=== PATIENT | male | born 1935 | race Caucasian/White ===

== ENCOUNTER 2017-03-18 08:27 | Inpatient (IN) | payer MEDICARE ==
[~2017-03-18] VITALS: Ht 172.7 cm; Wt 75.5 kg
[2017-03-18] MEDS ORDERED: ONDANSETRON 2MG/ML, 2ML IVPush ONE (09:00)
[2017-03-18] MEDS ORDERED: SODIUM CHLORIDE FLUSH 10ML SYR IVF ONE (09:00)
[2017-03-18] MEDS ORDERED: ONDANSETRON 2MG/ML, 2ML ONE (09:26)
[2017-03-18 09:49] LABS: HEMATOCRIT 28.9 % (39.2-51.8); HEMOGLOBIN 9.5 g/dL (13.7-18.0); WHITE BLOOD COUNT 13.5 x10^3/uL (3.4-10)
[2017-03-18 09:57] LABS: ASPARTATE AMINO TRANSFERASE 277 U/L (15-37); BLOOD UREA NITROGEN 21 mg/dL (7-18)
[2017-03-18] MEDS ORDERED: CEFTRIAXONE PMX 1GM/50ML 50 ML IV ONE (11:00)
[2017-03-18] MEDS ORDERED: SODIUM CHLORIDE 0.9% 1,000ML IVBOLUS ONE (11:00)
[2017-03-18] MEDS ORDERED: AZITHROMYCIN 500 MG in SODIUM CHLORIDE 0.9% 250 ML IV ONE (11:00)
[2017-03-18] MEDS ORDERED: SODIUM CHLORIDE 0.9%, 500ML IVBOLUS ONE (11:00)
[2017-03-18] MEDS ORDERED: CEFTRIAXONE PMX 1GM/50ML 50 ML ONE (11:05)
[2017-03-18] MEDS ORDERED: DILT180C PO (11:51)
[2017-03-18] MEDS ORDERED: SENN8.6T78 PO (11:51)
[2017-03-18] MEDS ORDERED: TRAM50TA2 PO (11:51)
[2017-03-18] MEDS ORDERED: TAMS0.4C2 PO (11:51)
[2017-03-18 12:10] VITALS: BP 153/81
[2017-03-18 13:33] VITALS: BP 153/81
[2017-03-18] MEDS ORDERED: VANCOMYCIN PER PHARMACY MC PRN (16:00)
[2017-03-18] MEDS ORDERED: ONDANSETRON 2MG/ML, 2ML IVPush PRN (16:00)
[2017-03-18] MEDS ORDERED: PHARMACOKINETIC MONITORING MC PRN (16:30)
[2017-03-18] MEDS ORDERED: PHARMACOKINETIC CONSULTATION MC ONE (16:30)
[2017-03-18] MEDS: MEROPENEM 1 GM in SODIUM CHLORIDE 0.9% 50 ML IV SCH (16:35)
[2017-03-18] MEDS: SODIUM CHLORIDE 0.9% 1,000 ML IV SCH ×2 (16:35→22:20)
[2017-03-18] MEDS: ENOXAPARIN 40 MG/0.4 ML SQ SCH (16:36)
[2017-03-18] MEDS: VANCOMYCIN 1,400 MG in SODIUM CHLORIDE 0.9% 250 ML IV SCH (17:58)
[2017-03-18 18:48] VITALS: BP 125/76
[2017-03-18] MEDS ORDERED: DILTIAZEM 90 MG CAP.ER.12H PO SCH (21:00)
[2017-03-18] MEDS: DILTIAZEM 60 MG CAP.ER.12H PO SCH (21:17)
[2017-03-18] MEDS ORDERED: OMNIPAQUE 350 MG/ML, 100ML BOTTLE ONE (21:44)
[2017-03-19 00:47] VITALS: BP 121/70
[2017-03-19] MEDS: MEROPENEM 1 GM in SODIUM CHLORIDE 0.9% 50 ML IV SCH ×2 (00:52→07:27)
[2017-03-19 04:40] LABS: HEMATOCRIT 25.2 % (39.2-51.8); HEMOGLOBIN 8.1 g/dL (13.7-18.0); WHITE BLOOD COUNT 12.9 x10^3/uL (3.4-10)
[2017-03-19 04:49] LABS: BLOOD UREA NITROGEN 23 mg/dL (7-18)
[2017-03-19] MEDS: morphine SULFATE 10 MG/ML, 1ML IVPush PRN ×3 (05:13→20:54)
[2017-03-19] MEDS: SODIUM CHLORIDE 0.9% 1,000 ML IV SCH ×3 (05:14→20:30)
[2017-03-19 05:15] LABS: ASPARTATE AMINO TRANSFERASE 298 U/L (15-37)
[2017-03-19 06:46] VITALS: BP 125/76
[2017-03-19] MEDS: DILTIAZEM 60 MG CAP.ER.12H PO SCH ×2 (07:27→20:54)
[2017-03-19] MEDS: TAMSULOSIN 0.4 MG CAP.ER.24H PO SCH (07:27)
[2017-03-19] MEDS ORDERED: SODIUM CHLORIDE 0.9%, 500ML IVBOLUS ONE (09:30)
[2017-03-19 13:58] VITALS: BP 112/68
[2017-03-19] MEDS: MEROPENEM 1 GM in SODIUM CHLORIDE 0.9% 100 ML IV SCH (16:13)
[2017-03-19] MEDS: ENOXAPARIN 40 MG/0.4 ML SQ SCH (16:13)
[2017-03-19] MEDS: VANCOMYCIN 1,400 MG in SODIUM CHLORIDE 0.9% 250 ML IV SCH (16:58)
[2017-03-19] MEDS ORDERED: ONDANSETRON 8 MG TABLET PO PRN (19:30)
[2017-03-19 20:13] VITALS: BP 119/62
[2017-03-20] MEDS: MEROPENEM 1 GM in SODIUM CHLORIDE 0.9% 100 ML IV SCH ×3 (00:48→15:57)
[2017-03-20 01:25] VITALS: BP 132/70
[2017-03-20] MEDS: SODIUM CHLORIDE 0.9% 1,000 ML IV SCH (06:00)
[2017-03-20 07:27] VITALS: BP 117/71
[2017-03-20] MEDS: DILTIAZEM 60 MG CAP.ER.12H PO SCH ×2 (08:00→20:55)
[2017-03-20] MEDS: TAMSULOSIN 0.4 MG CAP.ER.24H PO SCH (08:00)
[2017-03-20] MEDS: morphine SULFATE 10 MG/ML, 1ML IVPush PRN ×3 (08:09→14:35)
[2017-03-20 09:55] LABS: HEMATOCRIT 23.3 % (39.2-51.8); HEMOGLOBIN 7.6 g/dL (13.7-18.0); WHITE BLOOD COUNT 14.6 x10^3/uL (3.4-10)
[2017-03-20 10:06] LABS: BLOOD UREA NITROGEN 27 mg/dL (7-18)
[2017-03-20 10:30] LABS: ANISOCYTOSIS 1+; POLYCHROMASIA 1+
[2017-03-20 10:31] LABS: OVALOCYTES 1+
[2017-03-20 14:00] VITALS: BP 122/68
[2017-03-20] MEDS: ENOXAPARIN 40 MG/0.4 ML SQ SCH (15:57)
[2017-03-20] MEDS: VANCOMYCIN 1,400 MG in SODIUM CHLORIDE 0.9% 250 ML IV SCH (16:46)
[2017-03-20 19:42] VITALS: BP 126/62
[2017-03-20] MEDS: OXYcodone IR 5MG TABLET PO PRN (20:55)
[2017-03-21] MEDS: MEROPENEM 1 GM in SODIUM CHLORIDE 0.9% 100 ML IV SCH ×2 (00:38→08:00)
[2017-03-21 02:29] VITALS: BP 120/54
[2017-03-21] MEDS: OXYcodone IR 5MG TABLET PO PRN ×2 (03:13→09:08)
[2017-03-21 08:11] VITALS: BP 96/48
[2017-03-21] MEDS: DILTIAZEM 60 MG CAP.ER.12H PO SCH (08:53)
[2017-03-21] MEDS: TAMSULOSIN 0.4 MG CAP.ER.24H PO SCH (08:56)
== END 2017-03-21 12:15 | disposition hospice, home (50) | DRG 871 ==
LOC: ED 09:30 → EDIP 11:11 → 3NW 12:05
PROVIDERS: ADMIT Internal Medicine; ATTEND Internal Medicine
PROC: 0T9B70Z Drainage of Bladder with Drainage Device, Via Natural or Artificial Opening (ICD-10-PCS; principal; 2017-03-18)
DX: A41.9 Sepsis, unspecified organism (principal); E43 Unspecified severe protein-calorie malnutrition; E87.2 Acidosis; C78.7 Secondary malignant neoplasm of liver and intrahepatic bile duct; J18.1 Lobar pneumonia, unspecified organism; R18.8 Other ascites; D68.69 Other thrombophilia; R64 Cachexia; E87.1 Hypo-osmolality and hyponatremia; N39.0 Urinary tract infection, site not specified; C19 Malignant neoplasm of rectosigmoid junction; N13.30 Unspecified hydronephrosis; H35.30 Unspecified macular degeneration; I48.2 Chronic atrial fibrillation; D53.9 Nutritional anemia, unspecified; D69.6 Thrombocytopenia, unspecified; I51.7 Cardiomegaly; R65.20 Severe sepsis without septic shock; Z66 Do not resuscitate; Z90.49 Acquired absence of other specified parts of digestive tract; Z96.641 Presence of right artificial hip joint; Z88.0 Allergy status to penicillin; Z68.25 Body mass index [BMI] 25.0-25.9, adult; R59.1 Generalized enlarged lymph nodes
CPT/HCPCS: 36415; 51702; 71010; 74177; 80048; 80053; 81001; 82607; 82746; 83605; 83690; 83735; 84100; 84145; 84443; 85025; 87040; 87086; 93005; 96374; J0696; J1650; J2185; J2405; J3370; Q9967; J2270; J7030; J7040; J7050